=== PATIENT | male | born 1940 | race Caucasian/White ===

== ENCOUNTER 2018-02-14 09:23 | Emergency (ER) | payer MEDICARE, OTHER ==
[2018-02-14] MEDS ORDERED: ATOR10TA24 PO (09:37)
[2018-02-14] MEDS ORDERED: RIVA10TA (09:37)
[2018-02-14] MEDS ORDERED: LORA10CA3 PO (09:37)
[2018-02-14] MEDS ORDERED: DILT120C79 PO (09:37)
[2018-02-14] MEDS ORDERED: AMIO100T (09:37)
[2018-02-14] MEDS ORDERED: NS(*) 0.9% 1000 ML BAG 1,000 ML IV ONE (10:00)
[2018-02-14 10:04] LABS: PLATELET COUNT, AUTOMATED 301 K/uL (150-450)
[2018-02-14] MEDS ORDERED: DEXAMETHASONE SOD PHOS 10MG/ML IVP ONE (10:25)
[2018-02-14] MEDS ORDERED: METOCLOPRAMIDE 10 MG/2 ML SDV IVP ONE (10:25)
[2018-02-14] MEDS ORDERED: KETOROLAC 30 MG/ML VIAL IVP ONE (10:25)
--- NOTE | 2018-02-14 11:07 | RADIOLOGY IMAGING REPORT ---
FACILITY: [facility] - [place] PATIENT NAME: Nacho Jacobo : 1940 MR: [id number] V: [id number] EXAM DATE: ORDERING PHYSICIAN: CARMINE AVILES TECHNOLOGIST: Location: [facility] [place] Patient: Nacho Jacobo : 1940 Visit/Account:[id number] Date of Sevice: 02/14/2018 EXAMINATION: CT head without IV contrast HISTORY: Headache, on Xarelto. COMPARISON: None. TECHNIQUE: Contiguous axial images were obtained from the skull base to the vertex without intraven ous contrast. Sagittal and coronal reformatted images are also submitted. One of the following dose optimization techniques was utilized in the performance of this exam: Autom ated exposure control; adjustment of the mA and/or kV according to the patient's size; or use of an i terative reconstruction technique. Specific details can be referenced in the facility's radiology C T exam operational policy. FINDINGS: Brain volume: Mild generalized atrophy with associated concordant prominence of the ventricular syst em. Ventricles: Normal. Acute ischemic changes: None. Hemorrhage: No acute intracranial hemorrhage. Masses/edema: None. Ruiz-white: Negative. White matter: Patchy hypodensities in the deep white matter bilaterally. Vessels: Negative. Extra-axial: Negative. Calvarium/scalp: Negative. Skull base/visualized face: Negative. Visualized sinuses/orbits: Mild nasal septal deviation to the right. Previous left lens surgery. IMPRESSION: 1. No intracranial mass lesion or hemorrhage. No CT evidence of acute infarct. 2. Moderate nonspecific white matter disease is suspicious for chronic small vessel ischemia. Report Dictated By: Britni Florian MD at 02/14/2018 11:01 AM Report E-Signed By: Britni Florian MD at 02/14/2018 11:03 AM WSN:[id number]
--- NOTE | 2018-02-14 11:49 | EKG ---
FACILITY: [facility] PATIENT NAME: ABDULLAHI CUEVA : [id number] MR: [id number] V: [id number] EXAM DATE: ORDERING PHYSICIAN: CARMINE AVILES TECHNOLOGIST: DAVE Sheehan Reason : 8CP Blood Pressure : / mmHG Vent. Rate : 077 BPM Atrial Rate : 077 BPM P-R Int : 202 ms QRS Dur : 092 ms QT Int : 392 ms P-R-T Axes : -15 034 038 degrees QTc Int : 443 ms Normal sinus rhythm with 1st degree AV block Cannot rule out Anterior infarct (cited on or before 14-FEB-2018) No ST-T abnormalities When compared with ECG of 14-FEB-2018 09:37, Now NH is prolonged Confirmed by HAZEL HUGHES ([id number]) on 02/14/2018 2:48:06 PM Referred By: ROSETTA AVILES Confirmed By:HAZEL HUGHES
[2018-02-14] MEDS ORDERED: DILTIAZEM CD 120 MG CAPCR PO ONE (12:55)
--- NOTE | 2018-02-14 12:58 | ER Report ---
History and Physical Time Seen By MD: 09:30 Hx. of Stated Complaint: pt presents from [place] with c/o of elevated bp. Has weakness, lightheaded, h/a. Recent;y dx with a fib a month ago, on Xarelto Allergies: Coded Allergies: Penicillins (Verified Allergy, Unknown, 02/14/18) Home Meds Reported Medications Loratadine (CLARITIN) 10 Mg Capsule, 10 MG PO, CAPSULE 02/14/18 Atorvastatin Calcium (LIPITOR) 10 Mg Tablet, 1 TAB PO QDAY, TAB 02/14/18 Rivaroxaban 10 MG (Xarelto 10 MG) 10 Mg Tablet 02/14/18 Diltiazem Hcl (DILTIAZEM ER) 120 Mg Cap.er.deg, 120 MG PO 02/14/18 Amiodarone Hcl (AMIODARONE HCL) 100 Mg Tablet 02/14/18 Hx Substance Use Disorder: No Hx Alcohol Use: Yes (RARE) Constitutional Vital Sign - Last 24 Hours 02/14/18 02/14/18 02/14/18 02/14/18 09:27 09:28 09:38 09:45 Temp 98.6 Pulse 87 84 Resp 20 13 B/P (MAP) 171/98 171/98 (122) 152/100 (117) Pulse Ox 93 93 O2 Delivery Room Air 02/14/18 02/14/18 02/14/18 02/14/18 09:53 10:00 10:08 10:15 Pulse 80 83 Resp 9 13 B/P (MAP) 148/91 (110) 154/93 (113) Pulse Ox 91 90 02/14/18 02/14/18 02/14/18 02/14/18 10:20 10:30 10:35 10:45 Pulse 75 ??? Resp 9 15 B/P (MAP) 167/93 (117) 182/110 (134) Pulse Ox 93 93 02/14/18 02/14/18 02/14/18 02/14/18 11:15 11:20 11:30 11:35 Pulse 73 79 Resp 11 B/P (MAP) 171/99 (123) 162/111 (128) Pulse Ox 88 92 02/14/18 02/14/18 11:45 11:50 Pulse 78 Resp 9 B/P (MAP) 172/100 (124) Pulse Ox 92 Intake and Output 02/14/18 02/14/18 02/15/18 15:00 23:00 07:00 Intake Total 1000 ml Balance 1000 ml Medical Decision Making Data Points Result Diagram: 02/14/18 0935 02/14/18 0935 Laboratory Hematology Test 02/14/18 09:35 02/14/18 12:05 Red Blood Count 4.68 M/uL (4.00-5.60) Mean Corpuscular Volume 91.4 fL (80.0-96.0) Mean Corpuscular Hemoglobin 31.4 pg (26.0-33.0) Mean Corpuscular Hemoglobin Concent 34.3 g/dL (32.0-36.0) Red Cell Distribution Width 13.8 % (11.5-14.5) Mean Platelet Volume 8.9 fL (7.2-11.1) Neutrophils (%) (Auto) 71.5 % (39.4-72.5) Lymphocytes (%) (Auto) 16.2 % (17.6-49.6) Monocytes (%) (Auto) 10.5 % (4.1-12.4) Eosinophils (%) (Auto) 1.2 % (0.4-6.7) Basophils (%) (Auto) 0.6 % (0.3-1.4) Nucleated RBC Relative Count (auto) 0.0 /100WBC Neutrophils # (Auto) 4.8 K/uL (2.0-7.4) Lymphocytes # (Auto) 1.1 K/uL (1.3-3.6) Monocytes # (Auto) 0.7 K/uL (0.3-1.0) Eosinophils # (Auto) 0.1 K/uL (0.0-0.5) Basophils # (Auto) 0.0 K/uL (0.0-0.1) Nucleated RBC Absolute Count (auto) 0.00 K/uL Sodium Level 138 mmol/L (137-145) Potassium Level 4.2 mmol/L (3.5-5.0) Chloride Level 101 mmol/L (98-107) Carbon Dioxide Level 26 mmol/L (22-30) Blood Urea Nitrogen 17 mg/dl (9-21) Creatinine 1.30 mg/dl (0.66-1.25) Glomerular Filtration Rate Calc 53.7 Random Glucose 103 mg/dl (75-110) Calcium Level 9.5 mg/dl (8.4-10.2) Total Bilirubin 0.9 mg/dl (0.2-1.3) Aspartate Amino Transf (AST/SGOT) 20 U/L (0-35) Alanine Aminotransferase (ALT/SGPT) 26 U/L (0-56) Alkaline Phosphatase 85 U/L (0-126) Total Protein 4.5 g/dl (6.3-8.2) Albumin 4.4 g/dl (3.5-5.0) Troponin I < 0.012 ng/ml Chemistry Test 02/14/18 09:35 02/14/18 12:05 White Blood Count 6.7 k/uL (4.5-11.0) Red Blood Count 4.68 M/uL (4.00-5.60) Hemoglobin 14.7 g/dL (14.0-18.0) Hematocrit 42.8 % (42.0-52.0) Mean Corpuscular Volume 91.4 fL (80.0-96.0) Mean Corpuscular Hemoglobin 31.4 pg (26.0-33.0) Mean Corpuscular Hemoglobin Concent 34.3 g/dL (32.0-36.0) Red Cell Distribution Width 13.8 % (11.5-14.5) Platelet Count 301 K/uL (150-450) Mean Platelet Volume 8.9 fL (7.2-11.1) Neutrophils (%) (Auto) 71.5 % (39.4-72.5) Lymphocytes (%) (Auto) 16.2 % (17.6-49.6) Monocytes (%) (Auto) 10.5 % (4.1-12.4) Eosinophils (%) (Auto) 1.2 % (0.4-6.7) Basophils (%) (Auto) 0.6 % (0.3-1.4) Nucleated RBC Relative Count (auto) 0.0 /100WBC Neutrophils # (Auto) 4.8 K/uL (2.0-7.4) Lymphocytes # (Auto) 1.1 K/uL (1.3-3.6) Monocytes # (Auto) 0.7 K/uL (0.3-1.0) Eosinophils # (Auto) 0.1 K/uL (0.0-0.5) Basophils # (Auto) 0.0 K/uL (0.0-0.1) Nucleated RBC Absolute Count (auto) 0.00 K/uL Glomerular Filtration Rate Calc 53.7 Calcium Level 9.5 mg/dl (8.4-10.2) Total Bilirubin 0.9 mg/dl (0.2-1.3) Aspartate Amino Transf (AST/SGOT) 20 U/L (0-35) Alanine Aminotransferase (ALT/SGPT) 26 U/L (0-56) Alkaline Phosphatase 85 U/L (0-126) Total Protein 4.5 g/dl (6.3-8.2) Albumin 4.4 g/dl (3.5-5.0) Troponin I < 0.012 ng/ml Depart Departure Latest Vital Signs Vital Signs Date Time Temp Pulse Resp B/P (MAP) Pulse Ox O2 Delivery O2 Flow Rate FiO2 02/14/18 11:50 78 9 92 02/14/18 11:45 172/100 (124) 02/14/18 09:27 98.6 Room Air Impression: Primary Impression: Head ache Additional Impressions: Chest pain Hypertension Condition: Improved Disposition: HOME OR SELF-CARE New Scripts Diltiazem Hcl (DILTIAZEM 24HR ER) 240 Mg Cap.er.24h 240 MG PO QDAY for 30 Days, #30 Prov: CARMINE AVILES MD 02/14/18 Patient Instructions: Acute Headache (ED), Chronic Hypertension (ED) Additional Instructions: Stop taking the current dose of diltiazem 120 mg. Instead, starting tomorrow, start taking diltiazem 240 mg tablets. Follow up with her primary care doctor when return to [place]. Problem Qualifiers Primary Impression: Head ache Headache type: unspecified Headache chronicity pattern: acute headache Intractability: not intractable Qualified Codes: R51 - Headache Additional Impressions: Chest pain Chest pain type: unspecified Qualified Codes: R07.9 - Chest pain, unspecified Hypertension Hypertension type: unspecified Qualified Codes: I10 - Essential (primary) hypertension CARMINE AVILES MD Feb 14, 2018 12:58
[2018-02-14 13:00] VITALS: BP 174/96
[2018-02-14] MEDS ORDERED: DILT240C76 PO (13:04)
--- NOTE | 2018-02-14 14:27 | EKG ---
[place] [facility] [place]IENT NAME: ABDULLAHI CUEVA : [id number] MR: [id number] V: [id number] EXAM DATE: ORDERING PHYSICIAN: CARMINE AVILES TECHNOLOGIST: LUPILLO Test Reason : HIGH BP Blood Pressure : / mmHG Vent. Rate : 084 BPM Atrial Rate : 084 BPM P-R Int : 186 ms QRS Dur : 094 ms QT Int : 372 ms P-R-T Axes : -01 046 037 degrees QTc Int : 439 ms Normal sinus rhythm Cannot rule out Anterior infarct , age undetermined No ST-T abnormalities No previous ECGs available Confirmed by HAZEL HUGHES ([id number]) on 02/14/2018 2:43:24 PM Referred By: STEFAN Confirmed By:HAZEL HUGHES
== END 2018-02-14 13:18 | disposition home or self-care (01) ==
LOC: ER 09:48
DX: I10 Essential (primary) hypertension (principal); R51 Headache; R07.9 Chest pain, unspecified
CPT/HCPCS: 36415; 70450; 84484; 85025; 93005; 96361; 96374; 96375; 99284; A9270; J1100; J1885; J2765; J7030; 82040; 82247; 82310; 82374; 82435; 82565; 82947; 84075; 84132; 84155; 84295; 84450; 84460; 84520